=== PATIENT | male | born 1985 | race Caucasian/White ===

== ENCOUNTER 2017-03-16 02:39 | Emergency (ER) | payer SELFPAY ==
--- NOTE | 2017-03-16 04:34 | ER ---
ADMIT: 03/16/2017 RM/LOC: ER [facility] MR#: [id number] [address] [id number] [address] [place] [address] Emergency Room Report SEX: M AGE: 31 : 1985 DATE: 03/16/2017 The patient is a 31-year-old male, injured his right jha when he was jumping up onto his porch last week during the rain, sustained abrasions, now has infected sores. Exam remarkable for nontoxic, afebrile male with abrasion right knee and mid jha with surrounding cellulitis. No foreign bodies noted. The patient treated with Keflex 1000 mg p.o. in department and 500 mg QID x10 days, doxycycline 200 mg p.o. in department, 100 mg BID x10 days. Bacitracin ointment bandage and Bactroban ointment TID x7 days, dispensed 22 g. Keep wounds clean and dry. No peroxide. Follow up Dr. Levy as needed. Josiah Aldrich MD/ [facility] JOB #: [id number] CC: Josiah Aldrich MD, Attending Physician Sagar Levy MD, Family Physician Sagar Levy MD
== END 2017-03-16 03:23 | disposition home or self-care (01) ==
LOC: ER 02:39
DX: L03.115 Cellulitis of right lower limb (principal)